=== PATIENT | male | born 1960 | race Caucasian/White ===

== ENCOUNTER 2023-01-21 07:27 | Day surgery (SDC) | payer BC ==
[2023-01-19 10:14] LABS: BASOPHILS % (AUTO) 0.5 % (0.0-2.0); EOSINOPHILS # (AUTO) 0.1 K/uL (0.0-0.4); EOSINOPHILS % (AUTO) 2.7 % (0.0-4.0); HEMATOCRIT 47.7 % (36-54); HEMOGLOBIN 15.8 g/dL (14.0-18.0); LYMPHOCYTES # (AUTO) 1.5 K/uL (1.0-5.5); LYMPHOCYTES % (AUTO) 37.1 % (20.5-51.5); MEAN CORPUSCULAR HEMOGLOBIN 29 pg (27-31); MEAN CORPUSCULAR HGB CONC 33 % (32-36); MEAN CORPUSCULAR VOLUME 88 fL (79.0-98.0); MONOCYTES # (AUTO) 0.3 K/uL (0.0-1.0); MONOCYTES % (AUTO) 7.4 % (1.7-9.3); NEUTROPHILS # (AUTO) 2.1 K/uL (1.8-7.7); NEUTROPHILS % (AUTO) 52.3 % (40.0-70.0); PLATELET COUNT (AUTO) 266 K/uL (130-430); RED BLOOD CELL COUNT(AUTO) 5.42 MIL/uL (4.2-6.2); RED CELL DISTRIBUTION WIDTH 13.8 % (9.0-15.0); WHITE BLOOD COUNT (AUTO) 4.1 K/uL (4.8-10.8)
[2023-01-19 13:35] LABS: ALBUMIN 3.8 g/dL (3.4-4.8); CALCIUM 9.1 mg/dL (8.4-11.0); CREATININE 0.88 mg/dL (0.55-1.30); POTASSIUM 4.3 mmol/L (3.5-5.1); TOTAL BILIRUBIN 0.9 mg/dL (0.0-1.0); TOTAL PROTEIN, SERUM 7.4 g/dL (6.4-8.3)
[~2023-01-21] VITALS: Ht 177.8 cm; Wt 73.0 kg
[~2023-01-21 07:27] MED LIST: ACETAMINOPHEN 500 MG TABLET PO ONE; CEFAZOLIN SOD 2 GM in D5W 50 ML IV ONE; CELECOXIB 200 MG CAPSULE PO ONE; GABAPENTIN 300 MG CAPSULE PO ONE; oxyCODONE HCL 10 MG TAB.ER.12H PO ONE
[2023-01-21] MEDS ORDERED: ACETAMINOPHEN 500 MG TABLET ONE (07:52)
[2023-01-21] MEDS ORDERED: GABAPENTIN 300 MG CAPSULE ONE (07:52)
[2023-01-21] MEDS ORDERED: CELECOXIB 200 MG CAPSULE ONE (07:52)
[2023-01-21] MEDS ORDERED: oxyCODONE HCL 10 MG TAB.ER.12H PO ONE (07:53)
[2023-01-21 09:25] VITALS: O2SAT 99
[2023-01-21] MEDS ORDERED: NEOSTIGMINE METHYLSULFATE 1 MG/ML, 10 ML VIAL ONE (10:05)
[2023-01-21] MEDS ORDERED: ONDANSETRON HCL 4 MG/2 ML VIAL ONE (10:05)
[2023-01-21] MEDS ORDERED: GLYCOPYRROLATE 0.2 MG/ML VIAL ONE (10:05)
[2023-01-21] MEDS ORDERED: MIDAZOLAM HCL 2 MG/2 ML VIAL (VERSED) ONE (10:05)
[2023-01-21] MEDS ORDERED: NS IRRIG SOLN 1000 ML IR ONE (10:05)
[2023-01-21] MEDS ORDERED: LR 1,000 ML IV.SOLN IV ONE (10:05)
[2023-01-21] MEDS ORDERED: fentaNYL CITRATE/PF 100 MCG/2 ML AMP ONE (10:05)
[2023-01-21] MEDS ORDERED: PROPOFOL 200MG/ 20ML VIAL (DIPRIVAN) IV ONE (10:05)
[2023-01-21] MEDS ORDERED: ROCURONIUM BROMIDE 10 MG/ML (ZEMURON) ONE (10:05)
[2023-01-21] MEDS ORDERED: DEXAMETHASONE SOD PHOSPHATE 4 MG/ML VIAL ONE (10:05)
[2023-01-21] MEDS ORDERED: SUCCINYLCHOLINE CHLORIDE 20 MG/ML(QUELICIN) ONE (10:05)
[2023-01-21] MEDS ORDERED: BUPIVACAINE /PF 0.5% 30 ML VIAL ONE (10:05)
[2023-01-21] MEDS ORDERED: ePHEDrine sulfate 50 MG/ML VIAL ONE (10:05)
[2023-01-21] MEDS ORDERED: SEVOFLURANE 15 MIN GAS INH ONE (10:05)
[2023-01-21] MEDS ORDERED: NALOXONE HCL 0.4 MG/ML AMP (NARCAN) IVP PRN (10:45)
[2023-01-21] MEDS ORDERED: ONDANSETRON HCL 4 MG/2 ML VIAL IVP PRN (10:45)
[2023-01-21] MEDS ORDERED: HYDROmorphone 1 MG/ML INJ. CARTRIDGE IVP PRN ×2 (10:45)
[2023-01-21] MEDS ORDERED: fentaNYL CITRATE/PF 100 MCG/2 ML AMP IVP PRN (10:45)
[2023-01-21] MEDS ORDERED: LR 1,000 ML IV ONE (10:45)
[2023-01-21] MEDS ORDERED: BUPIVACAINE LIPOSOME/PF 266 MG/20 ML VIAL INFIL ONE (11:40)
[2023-01-21] MEDS ORDERED: HYDROmorphone 1 MG/ML INJ. CARTRIDGE ONE ×2 (13:24→14:12)
[2023-01-21 15:38] VITALS: PULSE 54; RESP 16
[2023-01-22 08:41] VITALS: BP_SYST 98
== END 2023-01-21 16:50 | disposition home or self-care (01) ==
LOC: SDS 07:27 → SMU 07:28 → SDS 16:50
PROVIDERS: ATTEND Surgery
DX: K40.20 Bilateral inguinal hernia, without obstruction or gangrene, not specified as recurrent (principal); K21.9 Gastro-esophageal reflux disease without esophagitis; E78.5 Hyperlipidemia, unspecified; Z79.01 Long term (current) use of anticoagulants; Z79.899 Other long term (current) drug therapy
CPT/HCPCS: 80053; 85025; 87081; 36415; 93005; 71046; 49650; C9290; J3490 ×2; J0690; J1100; J3465; J2405; J2704; J0330; J3010; J1170; J7060; J7120; C1727; C1781; S2900; J2710